=== PATIENT | female | born 1980 | race Hispanic/Latino ===

== ENCOUNTER 2017-09-21 14:00 | Emergency (ER) | payer BC, OTHER ==
[2017-09-21 14:03] VITALS: BP 146/84; PULSE 109; RESP 18; TEMP 97.7; O2SAT 99; BMI 26.4
[2017-09-21] MEDS ORDERED: Sodium Chloride 0.9% 1,000 ML IV STA (14:27)
[2017-09-21] MEDS ORDERED: Simethicone 80 mg Chewtab PO STA (14:27)
--- NOTE | 2017-09-21 14:30 | ED PDOC ---
HPI: Abdomen Time Seen by Provider: 09/21/17 14:15 Chief Complaint (Nursing): Abdominal Pain Chief Complaint (Provider): abdominal pain History Per: Patient (36 y/o female here with generalized abdominal pain L>R associated with sensation of bloating. Denies any vomiting/diarrhea/fevers/ chills/dysuria/vaginal discharge. Has h/o lap/band sx 2003.) Past Medical History Reviewed: Historical Data, Nursing Documentation, Vital Signs Vital Signs: Last Vital Signs Temp 97.7 F 09/21/17 14:03 Pulse 109 H 09/21/17 14:03 Resp 18 09/21/17 14:03 BP 146/84 09/21/17 14:03 Pulse Ox 99 09/22/17 13:42 - Family History Family History: States: No Known Family Hx - Home Medications Home Medications: Ambulatory Orders Medication Instructions Recorded Ciprofloxacin HCl [Cipro] 500 mg PO Q12 #14 tablet 09/21/17 Docusate Sodium [Colace] 100 mg PO BID #14 capsule 09/21/17 - Allergies Allergies/Adverse Reactions: Allergies Allergy/AdvReac Type Severity Reaction Status Date / Time Penicillins Allergy RASH Verified 09/21/17 14:02 Review of Systems ROS Statement: Except As Marked, All Systems Reviewed And Found Negative Gastrointestinal: Positive for: Abdominal Pain Physical Exam - Reviewed Nursing Documentation Reviewed: Yes Vital Signs Reviewed: Yes - Physical Exam Appears: Positive for: Well, Non-toxic, No Acute Distress Head Exam: Positive for: ATRAUMATIC, NORMAL INSPECTION, NORMOCEPHALIC Skin: Positive for: Normal Color, Warm, DRY Eye Exam: Positive for: EOMI, Normal appearance, PERRL ENT: Positive for: Normal ENT Inspection Neck: Positive for: Normal, Painless ROM Cardiovascular/Chest: Positive for: Regular Rate, Rhythm Respiratory: Positive for: CNT, Normal Breath Sounds Gastrointestinal/Abdominal: Positive for: Normal Exam, Bowel Sounds, Soft Back: Positive for: Normal Inspection Extremity: Positive for: Normal ROM Neurologic/Psych: Positive for: Alert, Oriented - Laboratory Results Result Diagrams: 09/21/17 14:47 09/21/17 14:47 Urine POC: Negative Urine dip results: Positive for: Leukocyte Esterase, Blood. Negative for: Nitrate, Ketones, Glucose, Bilirubin, Protein - ECG O2 Sat by Pulse Oximetry: 99 - Progress ED Course And Treament: cipro 500 mg x 1 dose simethicone 80mg x 1 dose pepcid 20 mg iiv x 1 dose zofran 4 mg iv x 1 dose xry obstructive series: moderate stool; no obstruction noted. urinalysis demonstrates UTI. Disposition - Clinical Impression Clinical Impression: Abdominal pain in female - Patient ED Disposition Is Patient to be Admitted: No - Disposition Referrals: Ronal Newsome MD, PhD [Staff Provider] - Disposition: Routine/Home Disposition Time: 15:52 Condition: FAIR Prescriptions: Ciprofloxacin HCl [Cipro] 500 mg PO Q12 #14 tablet Docusate Sodium [Colace] 100 mg PO BID #14 capsule Instructions: Constipation (DC), Urinary Tract Infection in Women (DC) Forms: [facility] ([place] Verdean), [facility] ED School/Work Excuse
[2017-09-21 14:51] LABS: BASO % 0.3 % (0.0-2.0); EOS # 0.1 K/uL (0.0-0.7); HEMATOCRIT 38.6 % (34.0-47.0); LYMPH # 1.3 K/uL (1.0-4.3); LYMPH % 10.9 % (20.0-40.0); MEAN CELL VOLUME 95.8 fl (81.0-99.0); MEAN CORPUSCULAR HEMOGLOBIN 31.8 pg (27.0-31.0); MEAN CORPUSCULAR HGB CONC 33.2 g/dL (33.0-37.0); MEAN PLATELET VOLUME 9.3 fl (7.2-11.7); MONO # 1.1 K/uL (0.0-0.8); MONO % 9.3 % (0.0-10.0); NEUT # 9.6 K/uL (1.8-7.0); NEUT % 78.5 % (50.0-75.0); RED CELL DISTRIBUTION WIDTH 12.1 % (11.5-14.5); WHITE BLOOD COUNT 12.2 K/uL (4.8-10.8)
[2017-09-21 15:05] LABS: ALB/GLOB RATIO 1.4 (1.0-2.1); ALKALINE PHOSPHATASE 54 U/L (38-126); ALT/SGPT 32 U/L (9-52); AST/SGOT 18 U/L (14-36); BLOOD UREA NITROGEN 14 mg/dl (7-17); CALCIUM 9.2 mg/dL (8.4-10.2); CARBON DIOXIDE 24 mmol/L (22-30); CHLORIDE 104 mmol/L (98-107); GFR AFRICAN-AMERICAN > 60; GLUCOSE,RANDOM 93 mg/dL (65-105); LIPASE 59 U/L (23-300); POTASSIUM 4.4 MMOL/L (3.6-5.0); SODIUM 139 mmol/l (132-148); TOTAL PROTEIN 7.7 G/DL (6.3-8.2)
[2017-09-21 15:12] LABS: RBC URINE 5 /hpf (0-3); URINE BACTERIA FEW (<OCC); URINE BILIRUBIN NEGATIVE (NEGATIVE); URINE BLOOD NEGATIVE (NEGATIVE); URINE COLOR YELLOW (YELLOW); URINE GLUCOSE (UA) NEG (Normal); URINE KETONE NEGATIVE (NEGATIVE); URINE LEUKOCYTE ESTERASE MOD Leu/uL (Negative); URINE PROTEIN 30 mg/dL (NEGATIVE); WBC URINE 22 /hpf (0-5)
--- NOTE | 2017-09-21 17:10 | RAD ---
PROCEDURE: Radiographs of the chest and abdomen (obstructive series) HISTORY: abdominal pain COMPARISON: No prior. TECHNIQUE: AP radiograph of the chest, with upright and supine radiographs of the abdomen. FINDINGS: CHEST: Lungs: Clear. Cardiovascular: Normal size heart. No pulmonary vascular congestion. Pleura: No pleural fluid. No pneumothorax. Other findings: None. ABDOMEN AND PELVIS: Bowel: Unremarkable bowel gas pattern. No evidence of mechanical obstruction. Free air: None. Bones: Unremarkable. Other findings: Small calcifications at the inferior pelvis are bilaterally identified suggesting probable phleboliths. IMPRESSION: Unremarkable radiographs of chest and abdomen. No evidence of mechanical bowel obstruction.
== END 2017-09-21 16:14 | disposition home or self-care (01) ==
LOC: H.ER 14:00
DX: R10.2 Pelvic and perineal pain (principal); Z88.0 Allergy status to penicillin; N39.0 Urinary tract infection, site not specified
CPT/HCPCS: 74022; 80053; 81003; 81025; 83690; 85025; 87086; 96361; 96374; 96375; 99283; J2405; J7040

== ENCOUNTER 2017-11-26 10:17 | Emergency (ER) | payer OTHER ==
[2017-11-26 10:17] VITALS: BMI 26.4
[2017-11-26 10:36] VITALS: BP 151/95; PULSE 72; RESP 16; O2SAT 99
[2017-11-26 10:43] VITALS: TEMP 97.7
[2017-11-26] MEDS ORDERED: Sodium Chloride 0.9% 1,000 ML IV STA (10:49)
--- NOTE | 2017-11-26 11:05 | ED PDOC ---
HPI: Abdomen Time Seen by Provider: 11/26/17 10:32 Chief Complaint (Nursing): Abdominal Pain Chief Complaint (Provider): Abdominal Pain History Per: Patient History/Exam Limitations: no limitations Onset/Duration Of Symptoms: Days (x 2) Current Symptoms Are (Timing): Still Present Additional Complaint(s): Alma is a 37 year old female who presents to the emergency department complaining of abdominal pain and nausea s/p Laparscopic Cholecystectomy with Dr. Hughes. Patient states she was doing fine until this morning. No fever, vomiting, constipation or diarrhea. PMD: Demetrius Madrigal Past Medical History Reviewed: Historical Data, Nursing Documentation, Vital Signs Vital Signs: Last Vital Signs Temp 97.7 F 11/26/17 10:34 Pulse 72 11/26/17 10:34 Resp 16 11/26/17 10:34 BP 151/95 H 11/26/17 10:34 Pulse Ox 99 11/26/17 13:08 - Surgical History Surgical History: Cholecystectomy (Laparoscopic) - Family History Family History: States: Unknown Family Hx - Home Medications Home Medications: Ambulatory Orders Medication Instructions Recorded Ciprofloxacin HCl [Cipro] 500 mg PO Q12 #14 tablet 09/21/17 Docusate Sodium [Colace] 100 mg PO BID #14 capsule 09/21/17 - Allergies Allergies/Adverse Reactions: Allergies Allergy/AdvReac Type Severity Reaction Status Date / Time Penicillins Allergy RASH Verified 09/21/17 14:02 Review of Systems ROS Statement: Except As Marked, All Systems Reviewed And Found Negative Constitutional: Negative for: Fever Gastrointestinal: Positive for: Nausea, Abdominal Pain. Negative for: Vomiting , Diarrhea, Constipation Physical Exam - Reviewed Nursing Documentation Reviewed: Yes Vital Signs Reviewed: Yes - Physical Exam Appears: Positive for: Well, No Acute Distress Skin: Positive for: Normal Color, Warm, Dry Eye Exam: Positive for: Normal appearance, EOMI, PERRL Cardiovascular/Chest: Positive for: Regular Rate, Rhythm Respiratory: Positive for: Normal Breath Sounds. Negative for: Accessory Muscle Use, Respiratory Distress Gastrointestinal/Abdominal: Positive for: Bowel Sounds, Soft, Tenderness ( Generalized abdominal tenderness), Other (Incisions C/D/I). Negative for: Mass , Distended, Guarding, Rebound Back: Positive for: Normal Inspection Neurologic/Psych: Positive for: Alert, Oriented - Laboratory Results Result Diagrams: 11/26/17 10:56 11/26/17 10:56 - ECG O2 Sat by Pulse Oximetry: 99 (RA) Pulse Ox Interpretation: Normal - Physician Consult Information Time Consulting Physican Contacted: 12:53 Physician Contacted: Sekou [place] Outcome Of Conversation: Findings discussed, agrees with discharge home. Medical Decision Making Medical Decision Making: Time: 10:48 Impression: Post-op abdominal pain Plan: - c - CMP - CBC - Morphine 2 mg IV STAT - Sodium Chloride 0.9% 1,000 ml IV I,000 mls/hr - Zofran Inj Time: 12:21 CT Abdominal and Pelvis with IV Contrast FINDINGS: Study appears to be captured at late arterial phase of enhancement. LOWER THORAX: Unremarkable. LIVER: Limited periportal edema is appreciated which is a nonspecific finding. No gross lesion or ductal dilatation. GALLBLADDER AND BILE DUCTS: Postcholecystectomy changes seen in the gallbladder fossa including surgical clips and potential surgical packing. Clinically correlate further. A definitive abscess is not identified at this time. PANCREAS: Unremarkable. No gross lesion or ductal dilatation. SPLEEN: Unremarkable. ADRENALS: Unremarkable. No mass. KIDNEYS AND URETERS: Unremarkable. No hydronephrosis. No solid mass. VASCULATURE: Unremarkable. No aortic aneurysm. BOWEL: The stomach is collapsed with mural thickening not excluded. No bowel obstruction is identified with moderate fecal loading seen throughout the colon. APPENDIX: (Not identified. No definitive pattern appendicitis is appreciable at this time. PERITONEUM: Postop changes seen extending from the gallbladder fossa inferiorly into the mesenteric with moderate mesenteric reaction appreciated and trace ascites identified in the right lower quadrant and pelvis intraperitoneal space. There also droplets of free intrarenal gas scattered in the nondependent abdomen predominantly as well as of the umbilical subcutaneous soft tissue and minimally of the gallbladder fossa. This is felt to be in normal postoperative appearance only 2 days status post laparoscopic cholecystectomy. Further clinical correlation is advised as well as possible CT follow-up nevertheless. LYMPH NODES: Unremarkable. No enlarged lymph nodes. BLADDER: Unremarkable. REPRODUCTIVE: Unremarkable. BONES: No acute fracture. OTHER FINDINGS: None. IMPRESSION: A post cholecystectomy pattern is suggested at the gallbladder fossa including trace emphysema, breast operative fluid and likely surgical packing. Trace limited free intrarenal gas is scattered throughout the abdomen infrequently which is felt to be a postoperative sequelae rather than evidence of hollow viscus rupture. Limited mesenteric edema appears present over the right ana laura abdomen extending to the right lower quadrant as well as trace ascites in the pelvis and right ana laura abdomen. Further clinical correlation is advised. CT follow-up is available if clinically warranted. No definitive abscess appreciated at this time. 13:00 CT findings discussed with Dr. Lopez (Radiology), "potential surgical packing " clarified to mean Surgicel or something similar, not a sponge or FB left in abdomen. Scribe Attestation: Documented by Gary Menjivar, acting as a scribe for Yumiko Ugalde MD Provider Scribe Attestation: All medical record entries made by the Scribe were at my direction and personally dictated by me. I have reviewed the chart and agree that the record accurately reflects my personal performance of the history, physical exam, medical decision making, and the department course for this patient. I have also personally directed, reviewed, and agree with the discharge instructions and disposition. Disposition - Clinical Impression Clinical Impression: Post-op pain - Disposition Referrals: Anthony Hughes MD [Staff Provider] - Disposition: Routine/Home Disposition Time: 13:03 Condition: STABLE Additional Instructions: CONTINUE TRAMADOL NEEDED FOR PAIN. Instructions: Pain Management After Surgery (GEN), Abdominal Pain (ED) Forms: [employer] (Slovak)
[2017-11-26] MEDS ORDERED: Morphine 4 MG/ML VIAL ONE (11:13)
[2017-11-26 11:15] LABS: BASO % 0.7 % (0.0-2.0); EOS # 0.4 K/uL (0.0-0.7); HEMOGLOBIN 12.2 g/dL (12.0-16.0); LYMPH # 1.2 K/uL (1.0-4.3); LYMPH % 18.6 % (20.0-40.0); MEAN CELL VOLUME 96.3 fl (81.0-99.0); MEAN CORPUSCULAR HEMOGLOBIN 32.1 pg (27.0-31.0); MEAN CORPUSCULAR HGB CONC 33.3 g/dL (33.0-37.0); MEAN PLATELET VOLUME 9.8 fl (7.2-11.7); MONO # 0.4 K/uL (0.0-0.8); MONO % 5.9 % (0.0-10.0); NEUT # 4.3 K/uL (1.8-7.0); NEUT % 68.8 % (50.0-75.0); RBC 3.79 Mil/uL (3.80-5.20); RED CELL DISTRIBUTION WIDTH 13.5 % (11.5-14.5); WHITE BLOOD COUNT 6.2 K/uL (4.8-10.8)
[2017-11-26 11:17] LABS: ALB/GLOB RATIO 1.5 (1.0-2.1); ALT/SGPT 60 U/L (9-52); AST/SGOT 31 U/L (14-36); BLOOD UREA NITROGEN 14 mg/dl (7-17); GFR AFRICAN-AMERICAN > 60; GFR NON-AFRICAN AMERICAN > 60
[2017-11-26] MEDS ORDERED: Iohexol 300 100 ML IJ ONE ×2 (11:30→11:53)
[2017-11-26] MEDS ORDERED: Sodium Chloride 0.9% 50 ML IV ONE ×2 (11:30→11:53)
--- NOTE | 2017-11-26 12:23 | CT ---
PROCEDURE: CT Abdomen and Pelvis with contrast HISTORY: Gen abd pain, 2 days s/p lap jeison COMPARISON: None. TECHNIQUE: Contrast dose: Omnipaque 300, 98 cc Radiation dose: Total exam DLP = 2008.51 mGy-cm. This CT exam was performed using one or more of the following dose reduction techniques: Automated exposure control, adjustment of the mA and/or kV according to patient size, and/or use of iterative reconstruction technique. FINDINGS: Study appears to be captured at late arterial phase of enhancement. LOWER THORAX: Unremarkable. LIVER: Limited periportal edema is appreciated which is a nonspecific finding. No gross lesion or ductal dilatation. GALLBLADDER AND BILE DUCTS: Postcholecystectomy changes seen in the gallbladder fossa including surgical clips and potential surgical packing. Clinically correlate further. A definitive abscess is not identified at this time. PANCREAS: Unremarkable. No gross lesion or ductal dilatation. SPLEEN: Unremarkable. ADRENALS: Unremarkable. No mass. KIDNEYS AND URETERS: Unremarkable. No hydronephrosis. No solid mass. VASCULATURE: Unremarkable. No aortic aneurysm. BOWEL: The stomach is collapsed with mural thickening not excluded. No bowel obstruction is identified with moderate fecal loading seen throughout the colon. APPENDIX: (Not identified. No definitive pattern appendicitis is appreciable at this time. PERITONEUM: Postop changes seen extending from the gallbladder fossa inferiorly into the mesenteric with moderate mesenteric reaction appreciated and trace ascites identified in the right lower quadrant and pelvis intraperitoneal space. There also droplets of free intrarenal gas scattered in the nondependent abdomen predominantly as well as of the umbilical subcutaneous soft tissue and minimally of the gallbladder fossa. This is felt to be in normal postoperative appearance only 2 days status post laparoscopic cholecystectomy. Further clinical correlation is advised as well as possible CT follow-up nevertheless. LYMPH NODES: Unremarkable. No enlarged lymph nodes. BLADDER: Unremarkable. REPRODUCTIVE: Unremarkable. BONES: No acute fracture. OTHER FINDINGS: None. IMPRESSION: A post cholecystectomy pattern is suggested at the gallbladder fossa including trace emphysema, breast operative fluid and likely surgical packing. Trace limited free intrarenal gas is scattered throughout the abdomen infrequently which is felt to be a postoperative sequelae rather than evidence of hollow viscus rupture. Limited mesenteric edema appears present over the right ana laura abdomen extending to the right lower quadrant as well as trace ascites in the pelvis and right ana laura abdomen. Further clinical correlation is advised. CT follow-up is available if clinically warranted. No definitive abscess appreciated at this time.
== END 2017-11-26 13:33 | disposition home or self-care (01) ==
LOC: H.ER 10:17
DX: G89.18 Other acute postprocedural pain (principal); Z88.0 Allergy status to penicillin; Z98.890 Other specified postprocedural states
CPT/HCPCS: 74177; 80053; 81025; 85025; 96361; 96374; 96375; 99282; J2270; J2405; J7040; Q9967